=== PATIENT | male | born 1990 | race Caucasian/White ===

== ENCOUNTER 2019-03-30 18:45 | Inpatient (IN) | payer OTHER ==
[2019-03-30 19:43] VITALS: BMI 29.0
--- NOTE | 2019-03-30 21:43 | HP ---
COWS - Scale Resting Pulse: 0= [place] 80 or Below Sweatin=Flushed/Facial Moisture Restless Observation: 1= Difficult to Sit Still Pupil Size: 1= Pupils >than Normal Bone or Joint Aches: 4=Acute Joint/Muscle Pain Runny Nose/ Eye Tearin= Constantly Teary/Runny GI Upset > 30mins: 3= Vomiting/Diarrhea (vomiting x 6) Tremor Observation: 2= Slight Tremor Visible Yawning Observation: 1= 1-2x During Session Anxiety or Irritability: 2=Irritable/Anxious Goose Flesh Skin: 0=Smooth Skin COWS Score: 20 CIWA Score - Admission Criteria [facility] Guidelines: Admission for Medically Managed Detox: Requires at least one of the followin. CIWA greater than 12 2. Seizures within the past 24 hours 3. Delirium tremens within the past 24 hours 4. Hallucinations within the past 24 hours 5. Acute intervention needed for co occurring medical disorder 6. Acute intervention needed for co occurring psychiatric disorder 7. Severe withdrawal that cannot be handled at a lower level of care (continued vomiting, continued diarrhea, abnormal vital signs) requiring intravenous medication and/or fluids 8. Admission ROS [facility] Chief Complaint: Seeking admission to detox from Heroin. Allergies/Adverse Reactions: Allergies Allergy/AdvReac Type Severity Reaction Status Date / Time No Known Allergies Allergy Verified 03/30/19 19:38 History of Present Illness: 28 years old male with a long history of heroin dependence is seeking admission to detox. Patient reports that he travelled to [facility] to stay with an aunt for six months and was drug free for six years after that. He relapsed a year ago in December 2017 on his birthday. He has history of asthma, seizure and anxiety. He reports that he is homeless and now lives in a custodial. He denies suicidal ideation at this time. Patient reports that he overdosed 2 weeks and has overdosed more than 10 times. This is his first admission and he reports that this is first inpatient admission to detox. Confidential Drug Utilization Report Search Terms: keyana coates, 1990 Search Date: 03/30/2019 09:34:04 PM The Drug Utilization Report below displays all of the controlled substance prescriptions, if any, that your patient has filled in the last twelve months. The information displayed on this report is compiled from pharmacy submissions to the Department, and accurately reflects the information as submitted by the pharmacies. There are no results for the search terms that you entered. 2017 [facility] Department of Health - [place] of Narcotic Enforcement Exam Limitations: No Limitations - Ebola screening Have you traveled outside of the country in the last 21 days: No (N) Have you had contact with anyone from an Ebola affected area: No Do you have a fever: No - Review of Systems Constitutional: Chills, Loss of Appetite, Malaise, Night Sweats, Changes in sleep EENT: reports: Sinus Pressure Respiratory: reports: No Symptoms reported GI: reports: Poor Appetite, Poor Fluid Intake, Vomiting, Abdominal cramping : reports: No Symptoms Reported Musculoskeletal: reports: Back Pain, Muscle Pain Integumentary: reports: Dryness, Flushing Neuro: reports: Tremors, Other (goosebumps) Endocrine: reports: Flushing, Increased Urine Hematology: reports: No Symptoms Reported Psychiatric: reports: No Sypmtoms Reported, Mood/Affect Appropiate, Orientated x3 Other Systems: Reviewed and Negative Patient History - Patient Medical History Hx Anemia: No Hx Asthma: Yes Hx Chronic Obstructive Pulmonary Disease (COPD): No Hx Cancer: No Hx Cardiac Disorders: No Hx Congestive Heart Failure: No Hx Hypertension: No Hx Hypercholesterolemia: No HX Cerebrovascular Accident: No Hx Seizures: Yes (Not on medication) Hx Dementia: No Hx Diabetes: No Hx Gastrointestinal Disorders: No Hx Liver Disease: No Hx Genitourinary Disorders: No Hx Sexually Transmitted Disorders: No Hx Renal Disease (ESRD): No Hx Thyroid Disease: No Hx Human Immunodeficiency Virus (HIV): No (Negative 2018) Hx Hepatitis C: No Hx Depression: No Hx Suicide Attempt: No Hx Bipolar Disorder: No Hx Schizophrenia: No Other Medical History: Anxiety - Patient Surgical History Past Surgical History: No - PPD History Previous Implant?: No Documented Results: Negative w/o proof Implanted On Prior [facility] Admission?: No PPD to be Administered?: Yes - Reproductive History Patient is a Female of Child Bearing Age (11 -55 yrs old): No (male) - Smoking Cessation Smoking history: Never smoked Have you smoked in the past 12 months: No Hx Chewing Tobacco Use: No Initiated information on smoking cessation: No - Substance & Tx. History Substance Use Type: Heroin, Marijuana - Substances abused Heroin Substance route: Injection Frequency: Daily Amount used: 12-13 bags/day Age of first use: 17 Date of last use: 03/30/19 Admission Physical Exam [facility] - Vital Signs Vital Signs: Vital Signs - 24 hr 03/30/19 19:39 Temperature 98.9 F Pulse Rate 64 Respiratory 16 Rate Blood Pressure 137/82 - Physical General Appearance: Yes: Moderate Distress, Tremorous, Irritable, Sweating, Anxious HEENTM: Yes: EOMI, Normal ENT Inspection, Normocephalic, Normal Voice, YAJAIRA, Khan Respiratory: Yes: Lungs Clear, Normal Breath Sounds, No Respiratory Distress Neck: Yes: Supple Breast: Yes: Breast Exam Deferred Cardiology: Yes: Regular Rhythm, Regular Rate Abdominal: Yes: Normal Bowel Sounds, Soft Genitourinary: Yes: Within Normal Limits Back: Yes: CVA Tenderness (L) Musculoskeletal: Yes: Within Normal Limits Extremities: Yes: Within Normal Limits, Normal Inspection Neurological: Yes: transition rn II-XII NML intact, Alert, Motor Strength 5/5 Integumentary: Yes: Warm, Track Khan (bilateral hands) Lymphatic: Yes: Within Normal Limits - Diagnostic (1) Opioid dependence with withdrawal Current Visit: Yes Status: Acute (2) Asthma Current Visit: Yes Status: Chronic Qualifiers: Asthma severity: mild Asthma persistence: intermittent Asthma complication type: unspecified Qualified Code(s): J45.20 - Mild intermittent asthma, uncomplicated (3) Seizure Current Visit: Yes Status: Chronic (4) Anxiety Current Visit: Yes Status: Acute Cleared for Admission [facility] - Detox or Rehab [facility] Level of Care: Medically Managed Detox Regimen/Protocol: Methadone Claeared for Rehab Admission: No Breathalyzer - Breathalyzer Breathalyzer: 0 Urine Drug Screen - Test Device Lot number: [id number] Expiration date: 11/11/20 - Control Is test valid?: Yes - Results Drug screen NEGATIVE: No Urine drug screen results: THC-Marijuana, FEN-Fentanyl, MOP-Opiates Inpatient Rehab Admission - Rehab Decision to Admit Inpatient rehab admission?: No
[2019-03-30] MEDS ORDERED: cloNIDine HCL 0.1 MG TABLET PO PRN (21:52)
[2019-03-30] MEDS ORDERED: MAG HYDROX/AL HYDROX/SIMETH 30 ML UNIT-DOSE CUP PO PRN (21:52)
[2019-03-30] MEDS ORDERED: ACETAMINOPHEN 325 MG TABLET (FP) PO PRN ×2 (21:52)
[2019-03-30] MEDS ORDERED: MENTHOL/PHENOL 1 EACH UD MM PRN (21:52)
[2019-03-30] MEDS ORDERED: IBUPROFEN 400 MG TABLET (FP) PO PRN (21:52)
[2019-03-30] MEDS ORDERED: MELATONIN 5 MG TABLETS PO PRN (21:52)
[2019-03-30] MEDS ORDERED: MAGNESIUM CITRATE 300 ML BOTTLE PO PRN (21:52)
[2019-03-30] MEDS ORDERED: BISMUTH SUBSALICYLATE 524 MG/30 ML UD PO PRN (21:52)
[2019-03-30] MEDS ORDERED: MAGNESIUM HYDROX 2400MG/30ML ORAL SUSPENSION 30 ML CUP PO PRN (21:52)
[2019-03-30] MEDS ORDERED: METHADONE HCL 10 MG TABLET (FOR DETOX USE ONLY) PO ONE (23:00)
[2019-03-30] MEDS: THIAMINE HCL 100 MG TABLET (FP) PO SCH (23:13)
[2019-03-31] MEDS ORDERED: METHADONE HCL 5 MG TABLET (FOR DETOX USE ONLY) ONE (09:53)
[2019-03-31] MEDS ORDERED: METHADONE HCL 10 MG TABLET (FOR DETOX USE ONLY) ONE (09:53)
[2019-03-31] MEDS ORDERED: METHADONE (DETOX) 20 MG, METHADONE (DETOX) 5 MG PO ONE (10:00)
[2019-03-31 10:06] LABS: HEMATOCRIT 39.7 % (35.4-49); HEMOGLOBIN 13.4 GM/dL (11.7-16.9); MCH 30.6 pg (25.7-33.7); MCHC 33.7 g/dl (32.0-35.9); MEAN CELL VOLUME 90.8 fl (80-96); MEAN PLT VOLUME 9.4 fl (7.5-11.1); PLATELET COUNT 170 K/MM3 (134-434); RBC 4.37 M/mm3 (4.00-5.60); RDW 14.1 % (11.9-15.9); WHITE BLOOD COUNT 5.7 K/mm3 (4.0-10.0)
[2019-03-31] MEDS: PRENATAL VITAMINS W/ FOLIC ACID TABLET (FP) PO SCH (10:09)
[2019-03-31] MEDS: METHOCARBAMOL 500 MG TABLET PO PRN ×2 (10:10→22:20)
[2019-03-31 10:25] LABS: ALBUMIN 3.4 g/dl (3.4-5.0); BILIRUBIN,TOTAL 0.2 mg/dL (0.2-1); CALCIUM 8.8 mg/dL (8.5-10.1); CREATININE 0.8 mg/dL (0.55-1.3); POTASSIUM 4.5 mmol/L (3.5-5.1); TOT PROT 6.4 g/dl (6.4-8.2)
--- NOTE | 2019-03-31 11:47 | PN ---
BHS COWS - Scale Resting Pulse: 0= [place] 80 or Below Sweatin= Chills/Flushing Restless Observation: 0= Sits Still Pupil Size: 1= Pupils >than Normal Bone or Joint Aches: 2= Severe Diffuse Aches Runny Nose/ Eye Tearin= Nasal Congestion GI Upset > 30mins: 1= Stomach Cramp Tremor Observation of Outstretched Hands: 2= Slight Tremor Visible Yawning Observation: 2= >3x During Session Anxiety or Irritability: 2=Irritable/Anxious Goose Flesh Skin: 3=Piloerection COWS Score: 15 BHS Progress Note (SOAP) Subjective: 28 years old male admitted on 03/30/19 for opiate withdrawal sx management treating with methadone detox regimen ate breakfast no trouble chewing swallowing tolerated food and fluid well resting on bed feeling tired Objective: 03/31/19 11:46 Vital Signs Temperature 96.8 F L 03/31/19 09:16 Pulse Rate 60 03/31/19 09:16 Respiratory Rate 20 03/31/19 09:16 Blood Pressure 114/60 03/31/19 09:16 O2 Sat by Pulse Oximetry (%) Laboratory Last Values WBC 5.7 K/mm3 (4.0-10.0) 03/31/19 07:50 RBC 4.37 M/mm3 (4.00-5.60) 03/31/19 07:50 Hgb 13.4 GM/dL (11.7-16.9) 03/31/19 07:50 Hct 39.7 % (35.4-49) 03/31/19 07:50 MCV 90.8 fl (80-96) 03/31/19 07:50 MCH 30.6 pg (25.7-33.7) 03/31/19 07:50 MCHC 33.7 g/dl (32.0-35.9) 03/31/19 07:50 RDW 14.1 % (11.9-15.9) 03/31/19 07:50 Plt Count 170 K/MM3 (134-434) 03/31/19 07:50 MPV 9.4 fl (7.5-11.1) 03/31/19 07:50 Sodium 142 mmol/L (136-145) 03/31/19 07:50 Potassium 4.5 mmol/L (3.5-5.1) 03/31/19 07:50 Chloride 105 mmol/L (98-107) 03/31/19 07:50 Carbon Dioxide 33 mmol/L (21-32) H 03/31/19 07:50 Anion Gap 4 MMOL/L (8-16) L 03/31/19 07:50 BUN 13.0 mg/dL (7-18) 03/31/19 07:50 Creatinine 0.8 mg/dL (0.55-1.3) 03/31/19 07:50 Est GFR (CKD-EPI)AfAm 140.90 03/31/19 07:50 Est GFR (CKD-EPI)NonAf 121.57 03/31/19 07:50 Random Glucose 85 mg/dL (74-106) 03/31/19 07:50 Calcium 8.8 mg/dL (8.5-10.1) 03/31/19 07:50 Total Bilirubin 0.2 mg/dL (0.2-1) 03/31/19 07:50 AST 24 U/L (15-37) 03/31/19 07:50 ALT 54 U/L (13-61) 03/31/19 07:50 Alkaline Phosphatase 65 U/L (45-117) 03/31/19 07:50 Total Protein 6.4 g/dl (6.4-8.2) 03/31/19 07:50 Albumin 3.4 g/dl (3.4-5.0) 03/31/19 07:50 RPR Titer Nonreactive (NONREACTIVE) 03/31/19 07:50 HIV 1&2 Antibody Screen Negative 03/31/19 07:50 HIV P24 Antigen Negative 03/31/19 07:50 lab noted Assessment: 03/31/19 11:46 opiate withdrawal Plan: methadone regimen
--- NOTE | 2019-03-31 12:24 | EKG ---
Test Reason : Blood Pressure : / mmHG Vent. Rate : 053 BPM Atrial Rate : 053 BPM P-R Int : 164 ms QRS Dur : 090 ms QT Int : 406 ms P-R-T Axes : 022 012 006 degrees QTc Int : 380 ms SINUS BRADYCARDIA WITH SINUS ARRHYTHMIA OTHERWISE NORMAL ECG NO PREVIOUS ECGS AVAILABLE Confirmed by ASHVIN KAY, JASON ([id number]) on 03/31/2019 12:24:14 PM Referred By: LA Confirmed By:JASON LOCK MD
--- NOTE | 2019-03-31 14:53 | CONSULT ---
[facility] Psychiatric Consult - Data Date of interview: 03/31/19 Admission source: [facility] Identifying data: First admission to [facility] for this 28 y/o [place]born male self-referred for detoxification. ZACHARY issues : heroin, nicotine, cannabis. Interviewed at [address] [place] [address]. Patient is single, no dependents, homeless, currently unemployed and supported on odd jobs. Substance Abuse History: Discussed with the patient. Details in current [facility] report as follows : Smoking history: Never smoked. Have you smoked in the past 12 months: No. Hx Chewing Tobacco Use: No. Initiated information on smoking cessation: No. - Substance & Tx. History. Substance Use Type: Heroin, Marijuana. - Substances abused. Heroin. Substance route: Injection. Frequency: Daily. Amount used: 12-13 bags/day. Age of first use: 17. Date of last use: 03/30/19 Medical History: Patient endorses good general health. Psychiatric History: Patient denies history of psychiatric hospitalizations, OPD care or suicide attempts. Physical/Sexual Abuse/Trauma History: Patient denies. Additional Comment: Urine drug screen results: THC-Marijuana, FEN-Fentanyl, MOP- Opiates. Noted. Mental Status Exam - Mental Status Exam Alert and Oriented to: Time, Place, Person Cognitive Function: Good Patient Appearance: Well Groomed Mood: Nervous, Anxious, Hopeful Affect: Appropriate, Normal Range Patient Behavior: Fatigued, Cooperative Speech Pattern: Clear, Appropriate Voice Loudness: Normal Thought Process: Intact, Goal Oriented Thought Disorder: Not Present Hallucinations: Denies Suicidal Ideation: Denies Homicidal Ideation: Denies Insight/Judgement: Poor Sleep: Poorly, Difficulty falling asleep Appetite: Good Muscle strength/Tone: Normal Gait/Station: Normal Psychiatric Findings - Problem List ([place] 1, 2,3) (1) Opioid dependence with withdrawal Current Visit: Yes Status: Acute (2) Cannabis dependence Current Visit: Yes Status: Chronic (3) Substance induced mood disorder Current Visit: Yes Status: Chronic (4) Insomnia Current Visit: Yes Status: Chronic - Initial Treatment Plan Initial Treatment Plan: Psychoeducation. Sleep hygiene. Detoxification. Support. Insomnia is addressed with belsomra 10 mg po hs prn. Side effects/ benefits discussed with patient. He agrees. Gave verbal consent to MD. Conner.
[2019-03-31] MEDS: THIAMINE HCL 100 MG TABLET (FP) PO SCH (22:20)
[2019-03-31] MEDS: SUVOREXANT 10 MG TABLET PO PRN (22:20)
[2019-04-01] MEDS ORDERED: METHADONE HCL 10 MG TABLET (FOR DETOX USE ONLY) PO ONE (10:00)
[2019-04-01] MEDS: PRENATAL VITAMINS W/ FOLIC ACID TABLET (FP) PO SCH (10:19)
[2019-04-01] MEDS: METHOCARBAMOL 500 MG TABLET PO PRN ×2 (10:21→22:33)
--- NOTE | 2019-04-01 11:03 | PN ---
BHS COWS - Scale Resting Pulse: 0= [place] 80 or Below Sweatin= Chills/Flushing Restless Observation: 0= Sits Still Pupil Size: 1= Pupils >than Normal Bone or Joint Aches: 1= Mild Discomfort Runny Nose/ Eye Tearin= Nasal Congestion GI Upset > 30mins: 1= Stomach Cramp Tremor Observation of Outstretched Hands: 2= Slight Tremor Visible Yawning Observation: 1= 1-2x During Session Anxiety or Irritability: 2=Irritable/Anxious Goose Flesh Skin: 3=Piloerection COWS Score: 13 BHS Progress Note (SOAP) Subjective: 28 years old male admitted on 03/30/19 for opiate withdrawal sx management treating with methadone detox regimen c/o genera body aches and muscle spasm encourage robaxine Objective: 04/01/19 11:04 Vital Signs Temperature 97.6 F 04/01/19 09:12 Pulse Rate 65 04/01/19 09:12 Respiratory Rate 16 04/01/19 09:12 Blood Pressure 102/57 L 04/01/19 09:12 O2 Sat by Pulse Oximetry (%) Laboratory Last Values WBC 5.7 K/mm3 (4.0-10.0) 03/31/19 07:50 RBC 4.37 M/mm3 (4.00-5.60) 03/31/19 07:50 Hgb 13.4 GM/dL (11.7-16.9) 03/31/19 07:50 Hct 39.7 % (35.4-49) 03/31/19 07:50 MCV 90.8 fl (80-96) 03/31/19 07:50 MCH 30.6 pg (25.7-33.7) 03/31/19 07:50 MCHC 33.7 g/dl (32.0-35.9) 03/31/19 07:50 RDW 14.1 % (11.9-15.9) 03/31/19 07:50 Plt Count 170 K/MM3 (134-434) 03/31/19 07:50 MPV 9.4 fl (7.5-11.1) 03/31/19 07:50 Sodium 142 mmol/L (136-145) 03/31/19 07:50 Potassium 4.5 mmol/L (3.5-5.1) 03/31/19 07:50 Chloride 105 mmol/L (98-107) 03/31/19 07:50 Carbon Dioxide 33 mmol/L (21-32) H 03/31/19 07:50 Anion Gap 4 MMOL/L (8-16) L 03/31/19 07:50 BUN 13.0 mg/dL (7-18) 03/31/19 07:50 Creatinine 0.8 mg/dL (0.55-1.3) 03/31/19 07:50 Est GFR (CKD-EPI)AfAm 140.90 03/31/19 07:50 Est GFR (CKD-EPI)NonAf 121.57 03/31/19 07:50 Random Glucose 85 mg/dL (74-106) 03/31/19 07:50 Calcium 8.8 mg/dL (8.5-10.1) 03/31/19 07:50 Total Bilirubin 0.2 mg/dL (0.2-1) 03/31/19 07:50 AST 24 U/L (15-37) 03/31/19 07:50 ALT 54 U/L (13-61) 03/31/19 07:50 Alkaline Phosphatase 65 U/L (45-117) 03/31/19 07:50 Total Protein 6.4 g/dl (6.4-8.2) 03/31/19 07:50 Albumin 3.4 g/dl (3.4-5.0) 03/31/19 07:50 RPR Titer Nonreactive (NONREACTIVE) 03/31/19 07:50 HIV 1&2 Antibody Screen Negative 03/31/19 07:50 HIV P24 Antigen Negative 03/31/19 07:50 lab noted Assessment: 04/01/19 11:04 opiate withdrawal Plan: methadone regimen
[2019-04-01] MEDS: SUVOREXANT 10 MG TABLET PO PRN (22:33)
[2019-04-01] MEDS: THIAMINE HCL 100 MG TABLET (FP) PO SCH (22:38)
[2019-04-02] MEDS ORDERED: METHADONE HCL 10 MG TABLET (FOR DETOX USE ONLY) ONE (09:38)
[2019-04-02] MEDS ORDERED: METHADONE HCL 5 MG TABLET (FOR DETOX USE ONLY) ONE (09:38)
[2019-04-02] MEDS ORDERED: METHADONE (DETOX) 10 MG, METHADONE (DETOX) 5 MG PO ONE (10:00)
[2019-04-02] MEDS: PRENATAL VITAMINS W/ FOLIC ACID TABLET (FP) PO SCH (10:05)
[2019-04-02] MEDS: METHOCARBAMOL 500 MG TABLET PO PRN ×2 (10:05→22:08)
[2019-04-02] MEDS ORDERED: cloNIDine HCL 0.1 MG TABLET PO PRN (13:30)
--- NOTE | 2019-04-02 13:35 | PN ---
BHS COWS - Scale Resting Pulse: 1= [place] 81-100 Sweatin= Chills/Flushing Restless Observation: 1= Difficult to Sit Still Pupil Size: 0= Normal to Room Light Bone or Joint Aches: 1= Mild Discomfort Runny Nose/ Eye Tearin= Nasal Congestion GI Upset > 30mins: 1= Stomach Cramp Tremor Observation of Outstretched Hands: 1= Tremor [place], Not Seen Yawning Observation: 1= 1-2x During Session Anxiety or Irritability: 0= None Goose Flesh Skin: 0=Smooth Skin COWS Score: 8 BHS Progress Note (SOAP) Subjective: pt states he feels like he is still in withdrawal w methadone detox protocol O: Vital Signs - 24 hr 04/01/19 04/01/19 04/02/19 18:00 23:43 00:30 Temperature 97.0 F L 98.7 F Pulse Rate 52 L 58 L Respiratory 18 18 18 Rate Blood Pressure 104/59 L 109/70 04/02/19 04/02/19 04/02/19 03:30 06:39 09:06 Temperature 97.3 F L 97.3 F L Pulse Rate 42 L 60 Respiratory 18 18 18 Rate Blood Pressure 102/58 L 99/58 L 04/02/19 04/02/19 09:07 13:07 Temperature 97.3 F L 100.2 F H Pulse Rate 60 59 L Respiratory 18 16 Rate Blood Pressure 99/58 L 111/67 Laboratory Tests 03/31/19 03/31/19 03/31/19 07:50 07:50 07:50 WBC 5.7 RBC 4.37 Hgb 13.4 Hct 39.7 MCV 90.8 MCH 30.6 MCHC 33.7 RDW 14.1 Plt Count 170 MPV 9.4 Sodium 142 Potassium 4.5 Chloride 105 Carbon Dioxide 33 H Anion Gap 4 L BUN 13.0 Creatinine 0.8 Est GFR (CKD-EPI)AfAm 140.90 Est GFR (CKD-EPI)NonAf 121.57 Random Glucose 85 Calcium 8.8 Total Bilirubin 0.2 AST 24 ALT 54 Alkaline Phosphatase 65 Total Protein 6.4 Albumin 3.4 RPR Titer Nonreactive HIV 1&2 Antibody Screen HIV P24 Antigen 03/31/19 07:50 WBC RBC Hgb Hct MCV MCH MCHC RDW Plt Count MPV Sodium Potassium Chloride Carbon Dioxide Anion Gap BUN Creatinine Est GFR (CKD-EPI)AfAm Est GFR (CKD-EPI)NonAf Random Glucose Calcium Total Bilirubin AST ALT Alkaline Phosphatase Total Protein Albumin RPR Titer HIV 1&2 Antibody Screen Negative HIV P24 Antigen Negative VS- Temp 100.2, pt asymptomatic labs WNL a/p: OUD-continue detox, will add clonidine/vistaril prn for Sx Follow temp- repeat labs
[2019-04-02] MEDS: THIAMINE HCL 100 MG TABLET (FP) PO SCH (22:07)
[2019-04-03] MEDS ORDERED: METHADONE HCL 10 MG TABLET (FOR DETOX USE ONLY) PO ONE (10:00)
[2019-04-03] MEDS: PRENATAL VITAMINS W/ FOLIC ACID TABLET (FP) PO SCH (10:04)
[2019-04-03] MEDS: METHOCARBAMOL 500 MG TABLET PO PRN ×2 (10:05→22:10)
--- NOTE | 2019-04-03 11:47 | PN ---
S COWS - Scale Resting Pulse: 0= [place] 80 or Below Sweatin= Chills/Flushing Restless Observation: 0= Sits Still Pupil Size: 0= Normal to Room Light Bone or Joint Aches: 0= None Runny Nose/ Eye Tearin= None GI Upset > 30mins: 0= None Tremor Observation of Outstretched Hands: 0= None Yawning Observation: 0= None Anxiety or Irritability: 2=Irritable/Anxious Goose Flesh Skin: 0=Smooth Skin COWS Score: 3 S Progress Note (SOAP) Subjective: c/o mild withdrawal symptoms. Objective: 04/03/19 11:45 Vital Signs 04/03/19 04/03/19 06:35 09:24 Temperature 98.3 F 97.5 F L Pulse Rate 48 L 54 L Respiratory 16 16 Rate Blood Pressure 107/61 112/69 Laboratory Last Values WBC 5.7 K/mm3 (4.0-10.0) 03/31/19 07:50 RBC 4.37 M/mm3 (4.00-5.60) 03/31/19 07:50 Hgb 13.4 GM/dL (11.7-16.9) 03/31/19 07:50 Hct 39.7 % (35.4-49) 03/31/19 07:50 MCV 90.8 fl (80-96) 03/31/19 07:50 MCH 30.6 pg (25.7-33.7) 03/31/19 07:50 MCHC 33.7 g/dl (32.0-35.9) 03/31/19 07:50 RDW 14.1 % (11.9-15.9) 03/31/19 07:50 Plt Count 170 K/MM3 (134-434) 03/31/19 07:50 MPV 9.4 fl (7.5-11.1) 03/31/19 07:50 Sodium 142 mmol/L (136-145) 03/31/19 07:50 Potassium 4.5 mmol/L (3.5-5.1) 03/31/19 07:50 Chloride 105 mmol/L (98-107) 03/31/19 07:50 Carbon Dioxide 33 mmol/L (21-32) H 03/31/19 07:50 Anion Gap 4 MMOL/L (8-16) L 03/31/19 07:50 BUN 13.0 mg/dL (7-18) 03/31/19 07:50 Creatinine 0.8 mg/dL (0.55-1.3) 03/31/19 07:50 Est GFR (CKD-EPI)AfAm 140.90 03/31/19 07:50 Est GFR (CKD-EPI)NonAf 121.57 03/31/19 07:50 Random Glucose 85 mg/dL (74-106) 03/31/19 07:50 Calcium 8.8 mg/dL (8.5-10.1) 03/31/19 07:50 Total Bilirubin 0.2 mg/dL (0.2-1) 03/31/19 07:50 AST 24 U/L (15-37) 03/31/19 07:50 ALT 54 U/L (13-61) 03/31/19 07:50 Alkaline Phosphatase 65 U/L (45-117) 03/31/19 07:50 Total Protein 6.4 g/dl (6.4-8.2) 03/31/19 07:50 Albumin 3.4 g/dl (3.4-5.0) 03/31/19 07:50 RPR Titer Nonreactive (NONREACTIVE) 03/31/19 07:50 HIV 1&2 Antibody Screen Negative 03/31/19 07:50 HIV P24 Antigen Negative 03/31/19 07:50 Labs noted. Assessment: 04/03/19 11:46 AOX3, in no respiratory distress. Full ROM, ambulating in the unit. Mild Withdrawal symptoms. For d/c tomorrow. 04/03/19 11:47 Plan: continue detox.
--- NOTE | 2019-04-03 16:12 | PN ---
S Progress Note Note: Psychiatry Attending's note : Belsomra 10 mg po hs prn. Renewal : done.
[2019-04-03] MEDS ORDERED: SUVOREXANT 10 MG TABLET PO PRN (22:00)
[2019-04-03] MEDS: THIAMINE HCL 100 MG TABLET (FP) PO SCH (22:10)
[2019-04-04] MEDS ORDERED: METHADONE HCL 5 MG TABLET (FOR DETOX USE ONLY) PO ONE (06:00)
[2019-04-04] MEDS: PRENATAL VITAMINS W/ FOLIC ACID TABLET (FP) PO SCH (10:19)
--- NOTE | 2019-04-04 12:02 | DS ---
[facility] Detox Discharge Summary Admission Date: 03/30/19 Discharge Date: 04/04/19 - History Present History: Opioid Dependence Additional Comments: 28 years old male admitted on 03/30/19 for opiate withdrawal sx management treated with methadone detox regimen patient tolerated well alert oriented x 3 respiratory clear lung bilaterally on auscultation extremities full range of motion skin warm and dry Pertinent Past History: transportation arranged by the counselor from detox to [facility] - Physical Exam Results Vital Signs: Vital Signs Temperature 98.3 F 04/04/19 09:26 Pulse Rate 87 04/04/19 09:26 Respiratory Rate 16 04/04/19 09:26 Blood Pressure 110/67 04/04/19 09:26 O2 Sat by Pulse Oximetry (%) Pertinent Admission Physical Exam Findings: opiate withdrawal Laboratory Last Values WBC 5.7 K/mm3 (4.0-10.0) 03/31/19 07:50 RBC 4.37 M/mm3 (4.00-5.60) 03/31/19 07:50 Hgb 13.4 GM/dL (11.7-16.9) 03/31/19 07:50 Hct 39.7 % (35.4-49) 03/31/19 07:50 MCV 90.8 fl (80-96) 03/31/19 07:50 MCH 30.6 pg (25.7-33.7) 03/31/19 07:50 MCHC 33.7 g/dl (32.0-35.9) 03/31/19 07:50 RDW 14.1 % (11.9-15.9) 03/31/19 07:50 Plt Count 170 K/MM3 (134-434) 03/31/19 07:50 MPV 9.4 fl (7.5-11.1) 03/31/19 07:50 Sodium 142 mmol/L (136-145) 03/31/19 07:50 Potassium 4.5 mmol/L (3.5-5.1) 03/31/19 07:50 Chloride 105 mmol/L (98-107) 03/31/19 07:50 Carbon Dioxide 33 mmol/L (21-32) H 03/31/19 07:50 Anion Gap 4 MMOL/L (8-16) L 03/31/19 07:50 BUN 13.0 mg/dL (7-18) 03/31/19 07:50 Creatinine 0.8 mg/dL (0.55-1.3) 03/31/19 07:50 Est GFR (CKD-EPI)AfAm 140.90 03/31/19 07:50 Est GFR (CKD-EPI)NonAf 121.57 03/31/19 07:50 Random Glucose 85 mg/dL (74-106) 03/31/19 07:50 Calcium 8.8 mg/dL (8.5-10.1) 03/31/19 07:50 Total Bilirubin 0.2 mg/dL (0.2-1) 03/31/19 07:50 AST 24 U/L (15-37) 03/31/19 07:50 ALT 54 U/L (13-61) 03/31/19 07:50 Alkaline Phosphatase 65 U/L (45-117) 03/31/19 07:50 Total Protein 6.4 g/dl (6.4-8.2) 03/31/19 07:50 Albumin 3.4 g/dl (3.4-5.0) 03/31/19 07:50 RPR Titer Nonreactive (NONREACTIVE) 03/31/19 07:50 HIV 1&2 Antibody Screen Negative 03/31/19 07:50 HIV P24 Antigen Negative 03/31/19 07:50 lab noted - Treatment Hospital Course: Detox Protocol Followed, Detoxed Safely, Responded well, Discharged Condition Good, Rehab Referral Accepted Patient has Accepted a Rehab Referral to: [facility] - Medication Discharge Medications: Ambulatory Orders Naloxone HCl [Narcan] 4 mg NS ASDIR PRN #1 spray 03/31/19 - Diagnosis (1) Opioid dependence with withdrawal Current Visit: Yes Status: Acute (2) Asthma Current Visit: Yes Status: Chronic Qualifiers: Asthma severity: mild Asthma persistence: intermittent Asthma complication type: unspecified Qualified Code(s): J45.20 - Mild intermittent asthma, uncomplicated (3) Substance induced mood disorder Current Visit: Yes Status: Suspected - AMA Did Patient Leave Against Medical Advice: No COWS (PN) - Opiate Withdrawal Resting Pulse: 0= [place] 80 or Below Sweatin= No chills or Flushing Restless Observation: 0= Sits Still Pupil Size: 0= Normal to Room Light Bone or Joint Aches: 0= None Runny Nose/ Eye Tearin= None GI Upset > 30mins: 0= None Tremor Observation of Outstretched Hands: 0= None Yawning Observation: 0= None Anxiety or Irritability: 1=Feels Anxious/Irritable Goose Flesh Skin: 0=Smooth Skin COWS Score: 1
[2019-04-04 13:31] VITALS: BP 103/64; PULSE 53; TEMP 98.6
== END 2019-04-04 12:45 | disposition home or self-care (01) | DRG 773 ==
LOC: YASAS 18:45 → Y3N 22:05
PROVIDERS: ADMIT Allergy & Immunology; ATTEND Allergy & Immunology
PROC: HZ2ZZZZ Detoxification Services for Substance Abuse Treatment (ICD-10-PCS; principal; 2019-03-30)
DX: F11.23 Opioid dependence with withdrawal (principal); F12.20 Cannabis dependence, uncomplicated; F41.9 Anxiety disorder, unspecified; J45.20 Mild intermittent asthma, uncomplicated; G47.00 Insomnia, unspecified; G40.909 Epilepsy, unspecified, not intractable, without status epilepticus
CPT/HCPCS: 36415; 80053; 85027; 86593; 87389; 93005; 93010